=== PATIENT | male | born 1975 | race Caucasian/White ===

== ENCOUNTER 2020-12-15 09:11 | Inpatient (IN) ==
[2020-12-15] MEDS ORDERED: SODIUM CHLORIDE 0.9% 1000ML 1,000 ML IV ONE (11:38)
[2020-12-15] MEDS ORDERED: ACETAMINOPHEN 1,000 MG/100 ML VIAL IV STA (11:38)
[2020-12-15] MEDS ORDERED: dexAMETHasone**PF** 10 MG/ML VIAL IV ONE (11:38)
[2020-12-15] MEDS ORDERED: MoRPHine SULFATE 10 MG/ML CARP/VIAL IV STA (11:39)
[2020-12-15 12:33] LABS: Basophils # (auto) 0.04 K/uL (0-0.2); Basophils % (auto) 0.5 %; Eosinophils # (auto) 0.08 K/uL (0-0.5); Hematocrit (blood only) 47.1 % (42-52); Immature Granulocytes # (auto) 0.08 K/uL (0.00-0.02); Lymphocytes # (auto) 3.39 K/uL (1.2-3.4); Mean Corpuscular Hemoglobin 29.3 pg (25-34); Mean Corpuscular Volume 86.1 fL (80-100); Mean Platelet Volume 10.3 fL (7.4-10.4); Monocytes # (auto) 0.64 K/uL (0.11-0.59); Monocytes % (auto) 7.7 %; Neutrophils # (auto) 4.03 K/uL (1.4-6.5); Neutrophils % (auto) 48.8 %; Platelet Count 278 K/uL (130-400); RDW Coefficient of Variation 12.8 % (11.5-14.5); RDW Standard Deviation 40.7 fL (36.4-46.3); Red Blood Count 5.47 M/uL (4.7-6.1); White Blood Count 8.26 K/uL (4.8-10.8)
[2020-12-15] MEDS ORDERED: ONDANSETRON INJ 2 MG/ML 2 ML VIAL IV PRN (12:40)
[2020-12-15] MEDS ORDERED: PROMETHAZINE HCL 12.5 MG in SODIUM CHLORIDE 0.9% 50 ML IV PRN (12:40)
[2020-12-15] MEDS ORDERED: traMADol HCL 50 MG TABLET PO PRN (12:40)
[2020-12-15] MEDS ORDERED: HYDROmorphone INJ 1 MG/ML SYRINGE IV PRN (12:40)
[2020-12-15] MEDS ORDERED: SOD PHOSPHATE/SOD BIPHOSPHATE ENEMA 132 ML BTL PR PRN (12:40)
[2020-12-15] MEDS ORDERED: KETOROLAC TROMETHAMINE 15 MG/ML VIAL IV PRN (12:40)
[2020-12-15] MEDS ORDERED: MAGNESIUM HYDROXIDE SUSP 30 ML UDC PO PRN (12:40)
[2020-12-15] MEDS ORDERED: ACETAMINOPHEN 500 MG TAB PO PRN (12:40)
[2020-12-15] MEDS ORDERED: LORazepam 0.5 MG/1 ML VIAL IV PRN (12:40)
[2020-12-15] MEDS ORDERED: ONDANSETRON 4 MG OD TAB PO PRN (12:40)
[2020-12-15] MEDS ORDERED: METOCLOPRAMIDE HCL INJ 5 MG/ML 2 ML VIAL IV PRN (12:40)
[2020-12-15] MEDS ORDERED: diphenhydrAMINE Capsule 25 MG CAP PO PRN (12:40)
[2020-12-15] MEDS ORDERED: NALOXONE HCL 0.4 MG/1 ML VIAL/CARP IV PRN (12:40)
[2020-12-15 12:51] LABS: Albumin Level 3.8 gm/dl (3.4-5.0); BUN Creatinine Ratio 17.9 (10-20); Calcium 8.9 mg/dl (8.5-10.1); Creatinine Clr Calc Pharmacy 89.6 ml/min; Est GFR (African American) 75.7 ml/min; Est GFR (Non-African American) 65.3 ml/min; Magnesium 2.6 mg/dl (1.8-2.4); Potassium 3.6 mmol/L (3.5-5.1)
[2020-12-15 12:54] LABS: Bilirubin,Total 0.3 mg/dl (0.2-1); Globulin 3.6 gm/dl (2.5-4.0); Phosphorus 3.4 mg/dl (2.5-4.9); Total Protein 7.4 gm/dl (6.4-8.2)
--- NOTE | 2020-12-15 13:41 | XRay Report ---
XR chest 2V PA/lateral CLINICAL HISTORY: Preoperative evaluation. COMPARISON STUDY: No previous studies for comparison. FINDINGS: Lung volumes are normal. Lungs are clear. There is no pneumothorax or pleural effusion. Car diac size is at the upper limits of normal. Mediastinal contours are normal. There is no evidence for pulmonary edema. IMPRESSION: No acute cardiopulmonary findings. ACT 112: Negative or not required by law. Electronically signed by: Oswaldo Gupta M.D. 12/15/2020 1:40 PM
[2020-12-15 14:31] LABS: INR 1.1 (0.9-1.1); Prothrombin Time 11.2 Seconds (9.0-12.0)
[2020-12-15 14:38] LABS: BUN Creatinine Ratio 15.3 (10-20); Calcium 8.4 mg/dl (8.5-10.1); Creatinine Clr Calc Pharmacy 81.5 ml/min; Est GFR (African American) 67.5 ml/min; Est GFR (Non-African American) 58.2 ml/min; Potassium 3.8 mmol/L (3.5-5.1)
--- NOTE | 2020-12-15 15:33 | Communication Note ---
Date of Service: December 15, 2020 Patient has an increase in CR from 1.31 to 1.44.? med related
--- NOTE | 2020-12-15 15:33 | Anesthesiology Consultation ---
Date of Service December 15, 2020 Assessment & Plan Chart Review Chart Review: Acceptable Risk for Surgery and Patient NOT seen in Pre Admission Testing Consults Requested none ASA ASA3 Proposed Anesthesia Anesthesia Type: General History Surgery Operation Date: 12/16/20 07:45 Proposed Procedures p L4-L5 Posterior Lumbar Decompression Fusion - Ralph Brown DO Height/Weight Height: 5 ft 7 in Weight: 123.2 kg Allergies Allergy/AdvReac Type Severity Reaction Status Date / Time acetaminophen [From Tylenol] AdvReac Intermediate Post nasal Unverified 12/15/20 12:26 drip/ trouble breathing Medications Home Medications Medication Instructions Recorded Confirmed Last Taken celecoxib 200 mg capsule 200 mg PO QAM 12/15/20 12/15/20 Unknown fenofibrate nanocrystallized 145 145 mg PO QAM 12/15/20 12/15/20 12/15/20 mg tablet fexofenadine 180 mg tablet 180 mg PO QAM PRN 12/15/20 12/15/20 Unknown ibuprofen 200 mg tablet 800 mg PO Q6H PRN 12/15/20 12/15/20 12/11/20 800 mg levothyroxine 100 mcg tablet 100 mcg PO QAM 12/15/20 12/15/20 12/15/20 (Synthroid) prednisone 5 mg tablet 5 mg PO DIRECTED 12/15/20 12/15/20 12/14/20 sertraline 100 mg tablet 100 mg PO QAM 12/15/20 12/15/20 12/15/20 tramadol 50 mg tablet 50 mg PO Q6H PRN 12/15/20 12/15/20 12/15/20 03:00 Exercise / Class Metabolic Activity II 4-5 Yardwork/Stairs/Walk up hill Past Anesthesia History No Hx of Anesthesia Complications and No Family Hx of Anesthesia Complications History of PONV No Hx of PONV and No Hx of Motion Sickness Social History Smoking Status: Current every day smoker substance use type: does not use Physical Exam Vital Signs Last Vital Signs Temp 36.6 C 12/15/20 09: Pulse 72 12/15/20 14:50 Resp 20 12/15/20 14:50 BP 150/76 H 12/15/20 14:50 Pulse Ox 98 12/15/20 14:50 Testing Laboratory Results 12/15/20 12:23 12/15/20 14:05 PT 11.2 Seconds (9.0-12.0) 12/15/20 14:05 INR 1.1 (0.9-1.1) 12/15/20 14:05 Chest X-Ray Date: 12/15/20 Findings: + NAD
[2020-12-15] MEDS ORDERED: GADOBUTROL 65ML VIAL IV ONE (16:25)
--- NOTE | 2020-12-15 17:02 | Magnetic Resonance Report ---
LUMBAR SPINE MRI WITH AND WITHOUT CONTRAST HISTORY: Intractable low back pain. Preop. TECHNIQUE: Multiplanar multisequence MRI of the lumbar spine was performed both before and after the intravenous administration of contrast. COMPARISON: None. FINDINGS: For the purpose of the report the L5-S1 disc space will be located on axial image 27 of 30. Localizer images suggest the possibility 3 cm exophytic lesion within the upper pole the left kidney. This is not included on the additional sequences. No fractures of fixation within the lumbar spine. There is mild disc space at L4-5 with associated disc desiccation. Remaining disc spaces are preserve d. The conus terminates at the L1 level. The visualized sacrum is intact. Paravertebral soft tissues are unremarkable. L1-L2: No significant central canal or neural foraminal narrowing. L2-L3: No significant central canal or neural foraminal narrowing. L3-L4: No significant central canal or neural foraminal narrowing. L4-L5: Evidence for prior right hemilaminectomy. There is enhancement at the hemilaminectomy site lik fortunato representing expected postoperative change. There is an 11 x 7 mm right paracentral focal disc pr otrusion which displaces and compresses the transiting right L5 nerve root. L5-S1: No significant central canal or neural foraminal narrowing. IMPRESSION: 1. An 11 x 7 mm right paracentral focal disc protrusion at L4-5 which displaces and compresses the tr ansiting right L5 nerve root. 2. Postoperative changes consistent with prior right L4-5 hemilaminectomy. 3. Possible 3 cm exophytic lesion within the upper pole of the left kidney. This is only partially im aged on this study. Follow-up nonemergent renal ultrasound recommended for confirmation. ACT 112: Positive. There are findings on this exam that require communication between the performing entity and the patient following Patient Test Result Information Act ([place] Act 112) guidelines. Electronically signed by: Jerome Mcfarland M.D. 12/15/2020 5:00 PM
[2020-12-15] MEDS: LACTATED RINGER'S 1,000 ML IV SCH (17:19)
[2020-12-15] MEDS: CYCLOBENZAPRINE HCL 10 MG TAB PO SCH ×2 (17:25→20:48)
--- NOTE | 2020-12-15 18:03 | Emergency Department Note ---
Impression & Plan Lumbar disc herniation with radiculopathy, Intractable low back pain ED Provider Note NAME: STEPHANIE PRESTON AGE: 45 SEX: M ARRIVES VIA: Walk-In INFORMANT: Patient, ED PROVIDER(S): Dell King MD CHIEF COMPLAINT: Back pain PLAN: Disposition: Admit MEDICAL DECISION MAKING: The patient is a pleasant 45-year-old gentleman with a pmhx of chronic back pain, lumbar disc disease who presents to the emergency department with worsening right lumbar pain and numbness and tingling of his right lower extremity which acutely worsened over the past 5 days, which occurs in the setting of his report of ongoing pain for the past year following prior lumbar surgery. He reports he was seen at outside hospital on Sunday and had a CT scan and Dilaudid which improved his pain but he reports the pain returned after 4 hours. He denies any loss of bowel control or urinary retention. Denies any fevers, chills, cough, congestion. He reports he had contacted his current spine surgeon's office (Dr. Brown) and was referred to the emergency department for possible admission. On arrival the patient is uncomfortable, in no acute distress, afebrile with stable vital signs. He has mild tenderness of the right mid lumbar region without midline tenderness or step-offs. He has normal strength in bilateral lower extremities. He has normal reflexes. There is no clonus. WBC, H/H and platelets with this. Chemistry without metabolic acidosis. Crea tinine 1.3. Electrolytes and LFTs on remarkable. COVID-19 PCR was negative. I did review the patient's case with his spinal surgeon, Dr. Brown, who evaluated the patient and will admit the patient for further management. Triage Nursing notes reviewed and agree them. Prior medical records reviewed Vital Signs: reviewed and remarkable for no significant abnormalities Differential diagnosis: Musculoskeletal, disc herniation, fracture, metastatic disease, cord compression, discitis, sciatica, cauda equina, infection, aortic disease, renal colic, gastrointestinal, as well as other pathologies. ER treatment provided: See below. Diagnostics interpreted by me: Cardiac Monitoring: An order for continuous cardiac monitoring was placed and demonstrated NSR, 79 bpm, no ectopy. Laboratory studies: See below Imaging studies: See below Consultation(s): Dr. Brown, orthopedic spine on-call. HPI: The patient is a pleasant 45-year-old gentleman with a pmhx of chronic back pain, lumbar disc disease who presents to the emergency department with worsening right lumbar pain and numbness and tingling of his right lower extremity which acutely worsened over the past 5 days, which occurs in the setting of his report of ongoing pain for the past year following prior lumbar surgery. He reports he was seen at outside hospital on Sunday and had a CT scan and Dilaudid which improved his pain but he reports the pain returned after 4 hours. He denies any loss of bowel control or urinary retention. Denies any fevers, chills, cough, congestion. He reports he had contacted his current spine surgeon's office (Dr. Brown) and was referred to the emergency department for possible admission. ROS: See above HPI for pertinent positives & negatives. A total of 10 systems reviewed and were otherwise negative. PAST MEDICAL HISTORY:See Below PAST SURGICAL HISTORY:See Below FAMILY HISTORY:See Below SOCIAL HISTORY:See Below HOME MEDICATIONS:See Below ALLERGIES:See Below VITALS:See Below PHYSICAL EXAMINATION: GENERAL: Awake, alert, uncomfortable-appearing, in no distress, BMI 43.8. HENT: Normocephalic, atraumatic. Oropharynx with dry mucous membranes and otherwise unremarkable. EYES: Normal conjunctiva. Sclera non-icteric. NECK: Supple. No nuchal rigidity. FROM. No JVD. RESPIRATORY: Clear to auscultation. CARDIAC: Regular rate, normal rhythm. Extremities warm and well perfused. Pulses equal. ABDOMEN: Soft, non-distended. No tenderness to palpation. No rebound or guarding. No masses. RECTAL: Deferred. MUSCULOSKELETAL: Chest examination reveals no tenderness. Mild tenderness of the right mid lumbar region without midline tenderness or step-offs. There is no CVA tenderness to palpation. No joint edema. LOWER EXTREMITIES: Calves are equal size bilaterally and non-tender. No edema. No discoloration. NEURO: Normal sensorium. No sensory or motor deficits noted. 5/5 strength and SILT x 4 extremities. DTRs wnl. No clonus. SKIN: No rash or jaundice noted. Dell King MD Past Med/Surg History Social History Smoking Status: Never smoker Hx Alcohol Use: No Hx Substance Use: No Preferred Language: Occitan Communication Ability: Effective Personal Banker Required: No Beliefs That Will Affect Care: None Current Living Situation: Significant Other Feels Safe at Home: Yes Assistive Devices: Walker Allergies Allergies Allergy/AdvReac Type Severity Reaction Status Date / Time acetaminophen [From Tylenol] AdvReac Intermediate Post nasal Unverified 12/15/20 12:26 drip/ trouble breathing Home Meds Home Medications Medication Instructions Recorded Confirmed celecoxib 200 mg capsule 200 mg PO QAM 12/15/20 12/15/20 fenofibrate nanocrystallized 145 145 mg PO QAM 12/15/20 12/15/20 mg tablet fexofenadine 180 mg tablet 180 mg PO QAM PRN 12/15/20 12/15/20 ibuprofen 200 mg tablet 800 mg PO Q6H PRN 12/15/20 12/15/20 levothyroxine 100 mcg tablet 100 mcg PO QAM 12/15/20 12/15/20 (Synthroid) prednisone 5 mg tablet 5 mg PO DIRECTED 12/15/20 12/15/20 sertraline 100 mg tablet 100 mg PO QAM 12/15/20 12/15/20 tramadol 50 mg tablet 50 mg PO Q6H PRN 12/15/20 12/15/20 Results & Data (ED) Vital Signs Vital Signs - 24 hr 12/15/20 09:21 12/15/20 12:19 Temperature 36.6 C Temperature Source Temporal Artery Scan Pulse Rate 79 Pulse Rate [Left Finger] 87 Respiratory Rate 18 20 Respiratory Effort / Characteristics Non-Labored Respiratory Depth Normal Blood Pressure 135/86 Blood Pressure [Left Arm] 165/94 H Blood Pressure Mean 102 Blood Pressure Mean [Left Arm] 117 Blood Pressure Position [Left Arm] Sitting Pulse Oximetry 96 97 Oxygen Delivery Method Room Air Sepsis Recent Fever Within 48 Hours No Sepsis New/Unexplained Change in Mental Status No Sepsis Action Taken by Nursing No Action Required Laboratory Data Result diagrams: 12/15/20 12:23 12/15/20 14:05 Lab Results 12/15/20 12/15/20 12/15/20 Range/Units 12:23 12:23 12:25 WBC 8.26 (4.8-10.8) K/uL RBC 5.47 (4.7-6.1) M/uL Hgb 16.0 (14.0-18.0) g/dL Hct 47.1 (42-52) % MCV 86.1 (80-100) fL MCH 29.3 (25-34) pg MCHC 34.0 (32-36) g/dL RDW Std Deviation 40.7 (36.4-46.3) fL RDW Coeff of Dary 12.8 (11.5-14.5) % Plt Count 278 (130-400) K/uL MPV 10.3 (7.4-10.4) fL Immature Gran % (Auto) 1.0 % Neut % (Auto) 48.8 % Lymph % (Auto) 41.0 % Hernando % (Auto) 7.7 % Eos % (Auto) 1.0 % Baso % (Auto) 0.5 % Neut # (Auto) 4.03 (1.4-6.5) K/uL Lymph # (Auto) 3.39 (1.2-3.4) K/uL Hernando # (Auto) 0.64 H (0.11-0.59) K/uL Eos # (Auto) 0.08 (0-0.5) K/uL Baso # (Auto) 0.04 (0-0.2) K/uL Immature Gran # (Auto) 0.08 H (0.00-0.02) K/uL Sodium 141 (136-145) mmol/L Potassium 3.6 (3.5-5.1) mmol/L Chloride 107 (98-107) mmol/L Carbon Dioxide 28 (21-32) mmol/L Anion Gap 6.0 (3-11) BUN 23 H (7-18) mg/dl Creatinine 1.31 (0.6-1.4) mg/dl Est Cr Clr Drug Dosing 89.6 ml/min Est GFR ( Amer) 75.7 ml/min Est GFR (Non-Af Amer) 65.3 ml/min BUN/Creatinine Ratio 17.9 (10-20) Glucose 109 H (70-99) mg/dl Calcium 8.9 (8.5-10.1) mg/dl Phosphorus 3.4 (2.5-4.9) mg/dl Magnesium 2.6 H (1.8-2.4) mg/dl Total Bilirubin 0.3 (0.2-1) mg/dl AST 25 (15-37) U/L ALT 35 (12-78) U/L Alkaline Phosphatase 48 (45-117) U/L Total Protein 7.4 (6.4-8.2) gm/dl Albumin 3.8 (3.4-5.0) gm/dl Globulin 3.6 (2.5-4.0) gm/dl Albumin/Globulin Ratio 1.0 (0.9-2) COVID-19 Eval Order Covid19 at [facility] SARS-CoV-2 (PCR) (Negative) 12/15/20 Range/Units 12:25 WBC (4.8-10.8) K/uL RBC (4.7-6.1) M/uL Hgb (14.0-18.0) g/dL Hct (42-52) % MCV (80-100) fL MCH (25-34) pg MCHC (32-36) g/dL RDW Std Deviation (36.4-46.3) fL RDW Coeff of Dary (11.5-14.5) % Plt Count (130-400) K/uL MPV (7.4-10.4) fL Immature Gran % (Auto) % Neut % (Auto) % Lymph % (Auto) % Hernando % (Auto) % Eos % (Auto) % Baso % (Auto) % Neut # (Auto) (1.4-6.5) K/uL Lymph # (Auto) (1.2-3.4) K/uL Hernando # (Auto) (0.11-0.59) K/uL Eos # (Auto) (0-0.5) K/uL Baso # (Auto) (0-0.2) K/uL Immature Gran # (Auto) (0.00-0.02) K/uL Sodium (136-145) mmol/L Potassium (3.5-5.1) mmol/L Chloride (98-107) mmol/L Carbon Dioxide (21-32) mmol/L Anion Gap (3-11) BUN (7-18) mg/dl Creatinine (0.6-1.4) mg/dl Est Cr Clr Drug Dosing ml/min Est GFR ( Amer) ml/min Est GFR (Non-Af Amer) ml/min BUN/Creatinine Ratio (10-20) Glucose (70-99) mg/dl Calcium (8.5-10.1) mg/dl Phosphorus (2.5-4.9) mg/dl Magnesium (1.8-2.4) mg/dl Total Bilirubin (0.2-1) mg/dl AST (15-37) U/L ALT (12-78) U/L Alkaline Phosphatase (45-117) U/L Total Protein (6.4-8.2) gm/dl Albumin (3.4-5.0) gm/dl Globulin (2.5-4.0) gm/dl Albumin/Globulin Ratio (0.9-2) COVID-19 Eval Order SARS-CoV-2 (PCR) NEGATIVE (Negative) Administered Medications Cyclobenzaprine HCl (Cyclobenzaprine Hcl 10 Mg Tab) 10 mg PO Q8 TIARRA Stop: 01/14/21 16:59 Last Admin: 12/15/20 20:48 Dose: Not Given Documented by: [id number] Admin: 12/15/20 17:25 Dose: Not Given Documented by: [id number] Dexamethasone 8 mg/ Syringe 2 mls @ 1 mls/min IV Q8H TIARRA Stop: 12/16/20 09:01 Last Admin: 12/15/20 18:21 Dose: 1 mls/min Documented by: [id number] Lactated Ringer's (Lr) 1,000 mls @ 75 mls/hr IV .[id number] TIARRA Stop: 01/14/21 12:44 Last Admin: 12/15/20 17:19 Dose: Not Given Documented by: [id number] Ketorolac Tromethamine (Ketorolac Tromethamine 15 Mg/Ml Vial) 15 mg IV Q6H PRN PRN Reason: Pain Stop: 12/20/20 12:39 Last Admin: 12/15/20 20:39 Dose: 15 mg Documented by: [id number] Oxycodone HCl (Oxycodone Hcl Ir 5 Mg Tab (Immediate Release)) 5 - 10 mg PO Q4H PRN PRN Reason: mod to severe pain Stop: 12/29/20 12:39 Last Admin: 12/15/20 20:40 Dose: 10 mg Documented by: [id number] Senna/Docusate Sodium (Docusate Sodium/Senna 50/8.6mg Tab) 2 tab PO HS TIARRA Stop: 01/14/21 20:59 Last Admin: 12/15/20 20:47 Dose: 2 tab Documented by: [id number] Discontinued Medications Dexamethasone Sodium Phosphate (DexamethasonePf 10 Mg/Ml Vial) 10 mg IV NOW ONE Stop: 12/15/20 11:39 Last Admin: 12/15/20 12:39 Dose: 10 mg Documented by: [id number] Gadobutrol (Gadobutrol 65ml Vial) 12.2 ml IV ONCE ONE Stop: 12/15/20 16:26 Last Admin: 12/15/20 16:18 Dose: 12.2 ml Documented by: [id number] Acetaminophen (Ofirmev) 1,000 mg in 100 mls @ 400 mls/hr IV NOW STA Stop: 12/15/20 11:52 Last Admin: 12/15/20 12:39 Dose: Not Given Documented by: [id number] Sodium Chloride (Nss 1000ml) 1,000 mls @ 999 mls/hr IV .Q1H1M ONE Stop: 12/15/20 12:38 Last Infusion: 12/15/20 17:19 Dose: 0 mls/hr Documented by: [id number] Admin: 12/15/20 12:22 Dose: 999 mls/hr Documented by: [id number] Morphine Sulfate (Morphine Sulfate 10 Mg/Ml Carp/Vial) 10 mg IV NOW STA Stop: 12/15/20 11:40 Last Admin: 12/15/20 12:39 Dose: 10 mg Documented by: [id number] Discharge Plan Visit Data Chief Complaint: Back Injury/Pain Stated Complaint: SEVERE BACK PAIN ED Provider: Dell King Discharge Problem: Lumbar disc herniation with radiculopathy, Intractable low back pain Patient Disposition: Admitted As Inpatient Discharge Instructions Interventions: ED Discharge Assessment Last Done: 12/15/20 15:22
[2020-12-15] MEDS: dexAMETHasone 8 MG in SYRINGE 0 ML IV SCH (18:21)
[2020-12-15] MEDS: oxyCODONE HCL IR 5 MG TAB (IMMEDIATE RELEASE) PO PRN (20:40)
[2020-12-15] MEDS: DOCUSATE SODIUM/SENNA 50/8.6MG TAB PO SCH (20:47)
[2020-12-16] MEDS: LACTATED RINGER'S 1,000 ML IV SCH ×3 (01:39→19:59)
[2020-12-16] MEDS: dexAMETHasone 8 MG in SYRINGE 0 ML IV SCH ×2 (01:39→13:00)
[2020-12-16] MEDS ORDERED: ceFAZolin 2000MG 2,000 MG/15 ML SYR IV SCH (06:00)
[2020-12-16] MEDS: LEVOTHYROXINE SODIUM 100 MCG TABLET PO SCH (06:26)
[2020-12-16] MEDS: CYCLOBENZAPRINE HCL 10 MG TAB PO SCH ×3 (06:27→21:27)
[2020-12-16] MEDS ORDERED: DEXAMETHASONE SOD INJ 4 MG/ML VIAL ONE (07:00)
[2020-12-16] MEDS ORDERED: ONDANSETRON INJ 2 MG/ML 2 ML VIAL ONE (07:00)
[2020-12-16] MEDS ORDERED: MIDAZOLAM HCL 1 MG/ML 2ML VIAL ONE (07:00)
[2020-12-16] MEDS ORDERED: PROPOFOL IV EMULSION 10 MG/ML 20 ML VIAL IV ONE (07:00)
[2020-12-16] MEDS ORDERED: LIDOCAINE 2% 2 ML VIAL/AMP(20MG/ML) INFIL ONE (07:00)
[2020-12-16] MEDS ORDERED: HYDROmorphone INJ 2 MG/ML SYR/VIAL ONE (07:00)
--- NOTE | 2020-12-16 07:38 | History & Physical Bridge Note ---
Date of Service December 16, 2020 History & Physical Bridge Note I have examined the patient, reviewed the History & Physical and in the interval since the performance of the History & Physical I have noted the following changes of clinical significance: no changes noted Decompression fusion L4-L5
[2020-12-16] MEDS ORDERED: EPINEPHrine INJ 1 MG/ML AMP ONE (07:44)
[2020-12-16] MEDS ORDERED: BUPIVACAINE 0.5 % 5 MG/1 ML MPF 30ML VIAL ONE (07:44)
[2020-12-16] MEDS ORDERED: fentaNYL citrate 100 MCG/2 ML VIAL IV PRN (08:29)
[2020-12-16] MEDS ORDERED: ONDANSETRON INJ 2 MG/ML 2 ML VIAL IV PRN ×2 (08:29→12:37)
[2020-12-16] MEDS ORDERED: ePHEDrine sulfate 50 MG/ML AMP IV PRN (08:29)
[2020-12-16] MEDS ORDERED: PROMETHAZINE HCL 6.25 MG in SODIUM CHLORIDE 0.9% 50 ML IV PRN (08:29)
[2020-12-16] MEDS ORDERED: ATROPINE SULFATE 0.1 MG/ML 10ML SYR IV PRN (08:29)
[2020-12-16] MEDS ORDERED: SUCCINYLCHOLINE 100MG/5ML SYR IV ONE (08:47)
[2020-12-16] MEDS ORDERED: ROCURONIUM BROMIDE 10 MG/ML 5 ML VIAL IV ONE (08:47)
[2020-12-16] MEDS ORDERED: NEOSTIGMINE METHYLSULFATE 1 MG/ML 10ML VIAL ONE (09:22)
[2020-12-16] MEDS ORDERED: GLYCOPYRROLATE 0.2 MG/ML VIAL ONE (09:22)
[2020-12-16] MEDS ORDERED: KETAMINE 50 MG/5 ML SYRINGE ONE (09:41)
[2020-12-16] MEDS ORDERED: FLOSEAL HEMOSTATIC MATRIX 10ML TOP ONE (10:09)
--- NOTE | 2020-12-16 10:14 | Operative Report ---
Post Operative Report Pre & Post Diagnosis Operation Date: 12/16/20 07:45 Pre-Op Diagnosis: Recurrent lumbar disc herniation with radiculopathy and weakness Morbid obesity Post-Op Diagnosis: Same I identified the patient and participated in the time-out.: Yes Procedure Operation Date: 12/16/20 07:45 Actual Procedures #1 revision decompression with medial facetectomy and foraminotomy L4-L5. #2 posterior spinal fusion L4-L5 per #3 placement posterior instrumentation L4-5. #4 interbody fusion L4-5. #5 placement peek cage 13 x 26 mm L4-5. #6 placement locally harvested morselized autograft in the posterior gutters. #7 placement of I factor and vitoss in the interbody space and posterior gutters. Surgeon Ralph Brown, Broke Beater Judith aCzares Estimated Blood Loss 100 Findings See Below The patient is 5 foot 6 inches tall weighing over 123 kg with a BMI in excess of 43. The patient's body habitus did contribute to significant technical difficulty requiring her deepest retractors longus instruments in order to perform his procedure. This at least 50% increase the operative time. Specimens None Indications This is a 45-year-old male well-known to me that presents with marked clinical status over the past several days. Presents with inability ambulate and progressive weakness affecting right lower extremity and subsequently here for emergent decompression fusion to avoid permanent neuro deficit. Description of Procedure Patient was met with identified informed consent obtained. Patient was then taken to the operative suite underwent ablation placed in a prone position the Eran table top Dilip frame. All bony prominences well-padded eyes inspected to ensure no external pressure placed upon the. This point the lumbar spine was prepped and draped sterile fashion. Sharp dissection with the assistance of Bovie cautery performed down to and exposing the remaining lamina and transverse processes of L4 and L5. Revision complete laminectomy of L4 was performed including medial facetectomy and foraminotomy on the right. Identified evidence of massive recurrent disc condition on the right with compression of the traversing L5 nerve root. This is removed in its entirety. Pedicle screws then placed in L4-5 bilaterally with assistance of fluoroscopy the proper sized félix placed. By way of a transforaminal portion right complete discectomy of L4-5 was performed endplates curetted to subcortical bleeding bone and a 13 x 26 mm peek cage filled with I factor was tapped in position. The rods were then compressed locked in final position bilaterally. The transverse processes of L4 and L5 burred to subcortical bleeding bone. I factor combined with Vitoss and locally harvested morselized autograft was placed in the posterior gutters. 15 round ROGER drain inserted. The incision was then closed with 1 Vicryl the fascia 2-0 Vicryl subcutaneously and 4 Monocryl for final skin closure. Steri-Strip Steri-Strips placed. Patient will continue PACU stable condition. Please note spinal cord monitoring was utilized at the procedure no changes noted. Lastly Judith Cazares was present at the entire surgeon while the patient positioning complex portions of the surgery and fascial closure. I attest to the content of the Intraoperative Record and any orders documented therein. Any exceptions are noted below.
--- NOTE | 2020-12-16 10:20 | Fluoroscopy Report ---
FL lumbar spine 2-3V CLINICAL HISTORY: L4-L5 posterior lumbar decompression/fusion COMPARISON STUDY: None. FLUOROSCOPY TIME: 23 seconds. FINDINGS: 2 fluoroscopic spot images of the lower lumbar spine demonstrate posterior decompression an d fusion at L4-5 with pedicle screws and rods. A disc spacer is in place. The hardware is intact. IMPRESSION: Fluoroscopy for for L4-5 posterior decompression and fusion ACT 112: Negative or not required by law. Electronically signed by: Jerome Mcfarland M.D. 12/16/2020 10:18 AM
[2020-12-16] MEDS ORDERED: ALBUT/IPRATROP 3MG/0.5MG NEB 3 ML VIAL NEB STA (11:03)
--- NOTE | 2020-12-16 11:50 | XRay Report ---
XR chest 1V portable HISTORY: 45 years-old Male sob, couigh acute cough with shortness of breath COMPARISON: 12/15/2020 TECHNIQUE: Portable AP view of the chest FINDINGS: Cardiomediastinal and hilar silhouettes are unchanged. No pneumothorax, pleural effusion, airspace co nsolidation or overt pulmonary edema. Bones of the chest appear grossly intact. IMPRESSION: No acute process. ACT 112: Negative or not required by law. The above report was generated using voice recognition software. It may contain grammatical, syntax o r spelling errors. Electronically signed by: Adis Ruiz M.D. 12/16/2020 11:48 AM
[2020-12-16] MEDS ORDERED: MAGNESIUM HYDROXIDE SUSP 30 ML UDC PO PRN (12:37)
[2020-12-16] MEDS ORDERED: DO NOT ADMINISTER FLU VACCINE PRN (12:37)
[2020-12-16] MEDS ORDERED: oxyCODONE HCL IR 5 MG TAB (IMMEDIATE RELEASE) PO PRN (12:37)
[2020-12-16] MEDS ORDERED: NALOXONE HCL 0.4 MG/1 ML VIAL/CARP IV PRN (12:37)
[2020-12-16] MEDS ORDERED: diphenhydrAMINE Capsule 25 MG CAP PO PRN (12:37)
[2020-12-16] MEDS ORDERED: hydrOXYzine HCl 25 MG TAB PO PRN (12:37)
[2020-12-16] MEDS ORDERED: traMADol HCL 50 MG TABLET PO PRN (12:37)
[2020-12-16] MEDS ORDERED: METOCLOPRAMIDE HCL INJ 5 MG/ML 2 ML VIAL IV PRN (12:37)
[2020-12-16] MEDS ORDERED: HYDROmorphone INJ 0.5 MG/0.5 ML SYR IV PRN (12:37)
[2020-12-16] MEDS ORDERED: LORazepam 0.5 MG TAB PO PRN (12:37)
[2020-12-16] MEDS ORDERED: HYDROmorphone INJ 1 MG/ML SYRINGE IV PRN (12:37)
[2020-12-16] MEDS ORDERED: PROMETHAZINE HCL 12.5 MG in SODIUM CHLORIDE 0.9% 50 ML IV PRN (12:37)
[2020-12-16] MEDS ORDERED: ALUMINUM/MAGNESIUM SUSP 30 ML UDC PO PRN (12:37)
[2020-12-16] MEDS ORDERED: LORazepam 0.5 MG/1 ML VIAL IV PRN (12:37)
[2020-12-16] MEDS ORDERED: DO NOT ADMINISTER PNEUMOCOCCAL VACCINE PRN (12:37)
[2020-12-16] MEDS ORDERED: FAMOTIDINE 20 MG TAB PO PRN (12:37)
[2020-12-16] MEDS ORDERED: SOD PHOSPHATE/SOD BIPHOSPHATE ENEMA 132 ML BTL PR PRN (12:37)
[2020-12-16] MEDS ORDERED: bisacodyL 10 MG SUPP PR PRN (12:37)
[2020-12-16] MEDS ORDERED: ONDANSETRON 4 MG OD TAB PO PRN (12:37)
[2020-12-16] MEDS: FENOFIBRATE NANOCRYSTALLIZED 145 MG TABLET PO SCH (13:00)
[2020-12-16] MEDS: SERTRALINE HCL 100 MG TABLET PO SCH (13:01)
--- NOTE | 2020-12-16 13:02 | Anesthesiology Progress Note ---
Date of Service December 16, 2020 Anesthesia Post Procedure Vital Signs Vital Signs: Temp Pulse Pulse Resp BP Pulse Ox 12/16/20 12:39 36.9 C 96 H 16 123/76 93 12/16/20 12:20 88 18 119/71 97 12/16/20 12:05 93 H 17 127/72 96 12/16/20 11:50 36.4 C L 91 H 18 122/77 98 12/16/20 11:40 90 18 122/77 98 12/16/20 11:30 89 20 121/78 98 12/16/20 11:20 91 H 20 115/86 98 12/16/20 11:17 88 18 100 12/16/20 11:10 86 16 121/89 93 12/16/20 11:00 90 17 106/72 100 12/16/20 10:50 82 17 126/76 98 12/16/20 10:41 36.1 C L 88 10 L 144/89 H 98 12/16/20 08:00 36.6 C 80 18 136/85 97 12/16/20 06:16 36.6 C 67 18 144/83 H 98 12/15/20 23:20 36.7 C 83 17 112/57 L 93 12/15/20 16:50 36.8 C 103 H 20 136/85 96 12/15/20 14:50 72 20 150/76 H 98 12/15/20 14:00 80 20 160/85 H 98 Pain Intensity Back: Pain Intensity: 6 Transfer of Care Handoff Completed per policy Notes Mental Status: alert / awake / arousable Patient Amnestic to Procedure: Yes Nausea / Vomiting: adequately controlled Pain: adequately controlled Airway Patency, RR, SpO2: stable & adequate BP & HR: stable & adequate Hydration State: stable & adequate Anesthetic Complications: no major complications apparent Notes: patient had some laryngospasm on emergence, necessitating placement of LMA to break with positive pressure. Oxygen saturations and tidal volumes rapidly improved. In PACU, he had course breath sounds and some chest discomfort. This was treated with supplemental oxygen and duoneb treatment which improved his symptoms. CXR unremarkable. He was weaned to nasal cannula and discharged to the floor on continuous pulse oxymetry.
[2020-12-16] MEDS: KETOROLAC 30 MG/ML VIAL IV SCH ×2 (13:12→18:39)
[2020-12-16] MEDS ORDERED: ALBUT/IPRATROP 3MG/0.5MG NEB 3 ML VIAL NEB PRN (14:20)
--- NOTE | 2020-12-16 14:24 | Hospitalist Consultation ---
Date of Consultation December 16, 2020 Assessment & Plan (1) Lumbar disc herniation with radiculopathy: - S/P Lumbar decompression/fusion on 16 December - Surgical management per primary - Pt was prescribed Prednisone taper prior to surgery for back pain - can be D/Cd on discharge - Pt did have laryngospasm which responded to supplemental O2 and Duoneb; No stridor or respiratory compromise currently. Still on supplemental O2 -- Duonebs PRN and monitor respiratory status -- Suspect patient may have underlying SHIRA and given body habitus at risk for hypoventilation syndrome - discussed deep breathing and encourage incentive spirometry (2) Elevated serum creatinine: - Limited labs for comparison - patient states he PCP mentioned his renal function has been elevated and recommended changing Celebrex from BID to daily - Monitor with AM labs but suspect he may be baseline (3) Hypothyroidism: - Continue Levothyroxine 100 mcg daily (4) Depression: - Continue Sertraline 100 mg daily Stable with chronic conditions currently. Hospitalists will continue to follow. Supervising Physician Co-Signing Physician Notes Attending note: patient seen and examined with Zeinab Salas PA-C. I agree with her exam, assessment and plan. - s/p lumbar surgery, management per Dr. Brown - elevated Cr: check BMP in the morning, making urine, electrolytes stable - hypothyroidism History of Present Illness Reason for Consultation: Medical Management Attending Physician: Ralhp Brown DO History of Present Illness Mr. Roberts is a 45 y/o male with PMHx of Hypothyroidism and Depression/Anxiety who is S/P Lumbar Decompression/Fusion on 16 December. Patient is doing well post- operatively. He did have some laryngospasm necessitating placement of LMA but responded to supplemental O2 and Duoneb treatment. Currently on 3.5L with appropriate saturations. Denies any know respiratory condition. 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 He does report his PCP has mentioned his renal function has been elevated on labs at their facility. He was on BID Celebrex and was advised to reduce it down to once a day as outpatient. Currently pain is management at this time and states it just feels like pressure. Pt has no known cardiac history or DVT/PE. Allergies Allergy/AdvReac Type Severity Reaction Status Date / Time acetaminophen [From Tylenol] AdvReac Intermediate Post nasal Unverified 12/15/20 12:26 drip/ trouble breathing Home Medications Medication Instructions Recorded Confirmed Type celecoxib 200 mg capsule 200 mg PO QAM 12/15/20 12/15/20 History fenofibrate nanocrystallized 145 145 mg PO QAM 12/15/20 12/15/20 History mg tablet fexofenadine 180 mg tablet 180 mg PO QAM PRN 12/15/20 12/15/20 History ibuprofen 200 mg tablet 800 mg PO Q6H PRN 12/15/20 12/15/20 History levothyroxine 100 mcg tablet 100 mcg PO QAM 12/15/20 12/15/20 History (Synthroid) prednisone 5 mg tablet 5 mg PO DIRECTED 12/15/20 12/15/20 History sertraline 100 mg tablet 100 mg PO QAM 12/15/20 12/15/20 History tramadol 50 mg tablet 50 mg PO Q6H PRN 12/15/20 12/15/20 History oxycodone 5 mg tablet 5 mg PO Q6H PRN #30 tab 12/17/20 Rx tramadol 50 mg tablet 50 mg PO Q6H PRN #30 tab 12/17/20 Rx amoxicillin 875 mg-potassium 1 tab PO BIDM #18 tab 12/18/20 Rx clavulanate 125 mg tablet (Augmentin) Patient History Medical History (Updated 12/17/20 @ 13:51 by Sarah Guzman PA-C) Depression Hypothyroidism Social History Smoking Status: Never smoker Hx Alcohol Use: No Hx Substance Use: No Preferred Language: Belarusian Communication Ability: Effective Industrial Hygienist Required: No Beliefs That Will Affect Care: None Current Living Situation: Significant Other Feels Safe at Home: No Assistive Devices: Walker Review of Systems Review of Systems: REVIEW OF SYSTEMS General/Constitutional: Denies fever/chills ENT: Denies visual changes, nasal drainage, hearing loss, sore throat, trouble swallowing Cardiovascular: Denies chest pain, palpitations, edema Respiratory: + cough; Denies sputum, SOB, wheezing, orthopnea GI: Denies nausea, vomiting, abdominal pain, constipation, diarrhea, melena/hematochezia : Denies dysuria, frequency, hematuria Musculoskeletal: + back pain/pressure Neurologic: Denies dizziness/lightheadedness, numbness/tingling Hematologic/Lymphatic: Denies bleeding/clotting abnormalities Skin: Denies rash, itch, new skin changes Results & Data Results & Data ([facility]) Vital Signs (Past 12 Hours) Vital Signs Temp Pulse Pulse Resp BP Pulse Ox 12/16/20 13:40 36.7 C 107 H 17 100/60 95 12/16/20 13:15 36.4 C L 88 16 117/76 95 12/16/20 12:39 36.9 C 96 H 16 123/76 93 12/16/20 12:20 88 18 119/71 97 12/16/20 12:05 93 H 17 127/72 96 12/16/20 11:50 36.4 C L 91 H 18 122/77 98 12/16/20 11:40 90 18 122/77 98 12/16/20 11:30 89 20 121/78 98 12/16/20 11:20 91 H 20 115/86 98 12/16/20 11:17 88 18 100 12/16/20 11:10 86 16 121/89 93 12/16/20 11:00 90 17 106/72 100 12/16/20 10:50 82 17 126/76 98 12/16/20 10:41 36.1 C L 88 10 L 144/89 H 98 12/16/20 08:00 36.6 C 80 18 136/85 97 12/16/20 06:16 36.6 C 67 18 144/83 H 98 PG Care Time/CCT Total # of Minutes Spent Total Time Spent with Patient: Total time spent is greater than 50% in coordination of care (as documented) at patient's floor/unit and/or counseling patient: Coding Level of Care Code 66923 Inpt Consult Level 2 Diagnoses Depression F32.9 Hypothyroidism E03.9 Lumbar disc herniation with radiculopathy M51.16 Elevated serum creatinine R79.89
[2020-12-16] MEDS: ceFAZolin 2000MG 2,000 MG/15 ML SYR IV SCH (17:28)
[2020-12-16] MEDS: oxyCODONE HCL IR 5 MG TAB (IMMEDIATE RELEASE) PO PRN (17:38)
[2020-12-16] MEDS: DOCUSATE SODIUM/SENNA 50/8.6MG TAB PO SCH (20:04)
[2020-12-16] MEDS ORDERED: DOCUSATE SODIUM/SENNA 50/8.6MG TAB PO SCH (21:00)
[2020-12-17] MEDS: KETOROLAC 30 MG/ML VIAL IV SCH ×2 (00:14→06:05)
[2020-12-17] MEDS: ceFAZolin 2000MG 2,000 MG/15 ML SYR IV SCH (00:15)
[2020-12-17] MEDS: LACTATED RINGER'S 1,000 ML IV SCH (04:56)
[2020-12-17] MEDS: CYCLOBENZAPRINE HCL 10 MG TAB PO SCH ×4 (05:26→23:59)
[2020-12-17] MEDS: POLYETHYLENE (MIRALAX) 17 GM PACK PO SCH ×4 (06:04→21:05)
[2020-12-17] MEDS: LEVOTHYROXINE SODIUM 100 MCG TABLET PO SCH (06:04)
[2020-12-17 06:29] LABS: Basophils # (auto) 0.01 K/uL (0-0.2); Basophils % (auto) 0.1 %; Eosinophils # (auto) 0.03 K/uL (0-0.5); Eosinophils % (auto) 0.2 %; Hematocrit (blood only) 39.7 % (42-52); Hemoglobin 13.4 g/dL (14.0-18.0); Immature Granulocytes # (auto) 0.05 K/uL (0.00-0.02); Immature Granulocytes % (auto) 0.4 %; Lymphocytes # (auto) 3.14 K/uL (1.2-3.4); Lymphocytes % (auto) 22.1 %; Mean Corpuscular Hemoglobin 28.4 pg (25-34); Mean Corpuscular Hgb Conc 33.8 g/dL (32-36); Mean Corpuscular Volume 84.1 fL (80-100); Mean Platelet Volume 9.9 fL (7.4-10.4); Monocytes # (auto) 0.93 K/uL (0.11-0.59); Monocytes % (auto) 6.6 %; Neutrophils # (auto) 10.02 K/uL (1.4-6.5); Neutrophils % (auto) 70.6 %; Platelet Count 276 K/uL (130-400); RDW Coefficient of Variation 12.8 % (11.5-14.5); RDW Standard Deviation 38.7 fL (36.4-46.3); Red Blood Count 4.72 M/uL (4.7-6.1); White Blood Count 14.18 K/uL (4.8-10.8)
[2020-12-17 07:04] LABS: BUN Creatinine Ratio 20.5 (10-20); Calcium 8.6 mg/dl (8.5-10.1); Creatinine Clr Calc Pharmacy 88.9 ml/min; Est GFR (African American) 76.4 ml/min; Est GFR (Non-African American) 65.9 ml/min; Potassium 3.9 mmol/L (3.5-5.1)
[2020-12-17] MEDS: FENOFIBRATE NANOCRYSTALLIZED 145 MG TABLET PO SCH (08:33)
[2020-12-17] MEDS: SERTRALINE HCL 100 MG TABLET PO SCH (08:33)
[2020-12-17] MEDS: oxyCODONE HCL IR 5 MG TAB (IMMEDIATE RELEASE) PO PRN ×2 (10:22→20:14)
[2020-12-17] MEDS ORDERED: OPTIRAY 320 125ml IV ONE (11:37)
--- NOTE | 2020-12-17 12:18 | CT Scan Report ---
CT angio chest PE protocol CT DOSE: 1824.70 mGy.cm HISTORY: 45 years-old Male with r/o pe. Acute shortness of breath TECHNIQUE: Multiple CTA images of the chest were obtained after the intravenous administration of 120 ml Optiray. Coronal and sagittal MIPS were obtained from the axial data set and were submitted for review. All measurements were obtained according to NASCET criteria. A dose lowering technique was u tilized adhering to the principles of ALARA. COMPARISON: Chest radiograph 12/16/2020 FINDINGS: CTA: There is adequate opacification of the pulmonary arteries to the level of the subsegmental branches w ithout convincing evidence of acute pulmonary embolism. Normal thoracic aorta.Heart size is normal. CT CHEST: No dominant thyroid nodule is seen. No pathologically adenopathy by CT size criteria. No pneumothora x or pleural effusion. Ill-defined patchy multilobar bilateral groundglass densities are noted predom inantly within a central distribution. No lobar airspace consolidation. The central airways are paten t. Hepatosplenomegaly with hepatic steatosis. Unremarkable soft tissues. There is no acute fracture. IMPRESSION: 1. No pulmonary emboli. 2. Bilateral multilobar patchy groundglass opacities are suggestive of a nonspecific infectious or in flammatory pneumonitis. 3. No pleural effusion. 4. Hepatosplenomegaly with hepatic steatosis. ACT 112: Negative or not required by law. The above report was generated using voice recognition software. It may contain grammatical, syntax o r spelling errors. Electronically signed by: Adis Ruiz M.D. 12/17/2020 12:17 PM
[2020-12-17] MEDS ORDERED: bisacodyL 10 MG SUPP PR PRN (12:40)
--- NOTE | 2020-12-17 13:38 | Orthopedic Progress Note ---
Date of Service December 17, 2020 Assessment & Plan (1) Lumbar disc herniation with radiculopathy: Plan: Patient will continue physical therapy monitor his ROGER output hopefully discharge home this weekend. Admission and Anticipated Discharge Date Admission Date: December 16, 2020 Subjective Back pain controlled leg pain markedly improved Physical Exam Physical Exam: On exam he is in the chair at the bedside. Marked improvement of his right leg strength. Results & Data ([facility]) Vital Signs (Past 12 Hours) Vital Signs Temp Pulse Resp BP Pulse Ox 12/17/20 12:10 36.9 C 91 H 18 123/74 94 12/17/20 12:08 36.9 C 91 H 18 123/74 94 12/17/20 07:36 36.7 C 81 17 101/58 L 97
--- NOTE | 2020-12-17 13:54 | Hospitalist Progress Note ---
Date of Service December 17, 2020 Assessment & Plan (1) Opacity noted on imaging study: Plan: * CT showing patchy groundglass opacities suggestive of PNA. By history, looking back he reports that he was starting to feel fatigued and as if "his asthma was flaring" prior to having his procedure. This may have contributed to his hypoxemia and laryngospasm that occurred yesterday after extubation (requiring emergent LMA). He does have mild leukocytosis today (which may be infectious or reactive from surgery) but more importantly, is having a productive cough with blood-tinged mucus and some faint adventitious breath sound that clears with coughing. His CTA was negative for PE. I think it makes sense to complete a full course of antibiotic therapy for community- acquired pneumonia. In addition, it is quite possible that he may have aspirated yesterday thus will use Augmentin which will provide adequate coverage for community-acquired pneumonia along with coverage for aspiration. * Would advise 7 days of therapy * In addition, I have added mucolytic agents * Continue neb treatments as needed * Patient is not hypoxic and is hemodynamically stable. No need to keep him in the hospital for treatment. Does not meet criteria for hospital-acquired infection as his admission was less than 48 hours ago * At any rate, it is quite possible that he may have had an underlying infection leading up to this procedure and/or he aspirated during the procedure * You do not need to keep him in the hospital for any extended time given the underlying pneumonia as he is not hypoxic and is hemodynamically stable. Okay to proceed with discharge once cleared by the primary team. * I do agree that patient is at risk for obesity hypoventilation syndrome and perhaps has undiagnosed SHIRA. Should have a sleep study as an outpatient -- will continue to follow (2) Lumbar disc herniation with radiculopathy: Plan: - S/P Lumbar decompression/fusion-POD #1 -Pain adequately controlled. Tolerating pain medication without ill effects. -Management per primary team (3) Elevated serum creatinine: Plan: - Limited labs for comparison - patient states he PCP mentioned his renal function has been elevated and recommended changing Celebrex from BID to daily -Creatinine 1.44-->1.3 -I would advise patient hold NSAIDs for now (looks to be taking Celebrex twice daily in addition to ibuprofen as needed) (4) Hypothyroidism: Plan: - Continue Levothyroxine 100 mcg daily (5) Depression: Plan: - Continue Sertraline 100 mg daily Plan: Stable with chronic conditions currently. Hospitalists will continue to follow. Admission and Anticipated Discharge Date Admission Date: December 16, 2020 Subjective Seen on daily rounds today. He is a 45-year-old white male who is POD #1 s/p lumbar decompression with fusion. Apparently following surgical intervention yesterday, he was extubated and while in recovery, became hypoxic with audible stridor requiring insertion of LMA. His O2 saturations and total volume rapidly improved he was treated with breathing treatments and supplemental oxygen and was subsequently transitioned to the floor. He remained on 5 to 6 L and has been slowly down titrated overnight. This morning he is 94% on room air. Patient does report an underlying history of asthma. Claims it is typically well controlled but 4 days leading up to his procedure, he felt as if "his asthma was flaring". He denied any fevers or chills. This morning, he can hear "a rattle in his chest" and is expectorating green mucus that is blood-tinged. Nurse did mild hemoptysis (size of a quarter). Patient denies F/C. He has remained afebrile and HD stable. He denies calf pain or swelling. Denies pleurisy or SOB. Does report a h/o covid in May- mild (loss of taste and smells, cough and fatigue). Has completely recovered from this. Denies a personal/family history of DVT/PE/blood dyscrasia. Given his recent surgical intervention, his postoperative episode of bronchospasm/laryngospasm with hypoxemia requiring LMA insertion, and former history of CovidI was slightly suspicious for underlying PE. A CTA was obtained showing no evidence of PE but did show multilobar opacities. Currently his back pain is controlled. Tolerating pain medication without ill effects. Review of Systems Review of Systems: All systems reviewed and are unremarkable except as noted in HPI and below + Mild hemoptysis, productive cough. Otherwise, denies fevers, chills, headache, nasal congestion, sore throat, cough, chest pain, shortness of breath, pleurisy, palpitations, orthopnea, PND, abdominal pain, nausea, vomiting, diarrhea, constipation, dysuria, hematuria, frequency, back pain, joint pain or swelling, easy bruising or blooding, skin lesions or rashes. Physical Exam Physical Exam: General: Resting comfortably in his hospital bed. Does not appear ill or toxic. NAD. HEENT: Head is AT/NC buccal mucosa is moist and pink Neck: No JVD. Negative hepatojugular reflex Cardiac: Distant heart sounds Lungs: Speaking full sentences on ambient air. Coarse scattered rhonchi that mobilizes with coughing. No wheezes or rails. Negative egophony throughout Abdomen: Normoactive X4. Soft and nontender in all quadrants. Extremities: Surgical dressing to lower back dry and intact. Indwelling ROGER drain. No peripheral clubbing cyanosis or edema Neuro: A&O X4 cranial nerves II through XII are grossly intact no focal neuro deficits Skin: No obvious skin lesions or rashes Psych: Appropriate affect pleasant and cooperative Results & Data Results & Data ([facility]) Vital Signs (Past 12 Hours) Vital Signs Temp Pulse Resp BP Pulse Ox 12/17/20 12:10 36.9 C 91 H 18 123/74 94 12/17/20 12:08 36.9 C 91 H 18 123/74 94 12/17/20 07:36 36.7 C 81 17 101/58 L 97 Laboratory Results 12/17/20 06:12 12/17/20 06:12 Diagnostic Findings CTA of the chest: IMPRESSION: 1. No pulmonary emboli. 2. Bilateral multilobar patchy groundglass opacities are suggestive of a nonspecific infectious or inflammatory pneumonitis. 3. No pleural effusion. 4. Hepatosplenomegaly with hepatic steatosis. PG Care Time/CCT Total # of Minutes Spent Total Time Spent with Patient: Total time spent is greater than 50% in coordination of care (as documented) at patient's floor/unit and/or counseling patient: [place] [address] Inpt Consult Level 5 Patient Type Established Diagnoses Lumbar disc herniation with radiculopathy M51.16 Elevated serum creatinine R79.89 Hypothyroidism E03.9 Depression F32.9 Opacity noted on imaging study R93.89
[2020-12-17] MEDS: KETOROLAC TROMETHAMINE 15 MG/ML VIAL IV PRN (17:33)
[2020-12-17] MEDS: AMOXICILLIN/CLAVULANATE 875 MG TAB PO SCH (17:36)
[2020-12-17] MEDS: DOCUSATE SODIUM/SENNA 50/8.6MG TAB PO SCH (19:03)
[2020-12-17] MEDS: guaiFENesin 600 MG TABCR PO SCH (20:15)
[2020-12-18] MEDS: KETOROLAC TROMETHAMINE 15 MG/ML VIAL IV PRN (02:57)
[2020-12-18] MEDS: LEVOTHYROXINE SODIUM 100 MCG TABLET PO SCH (05:54)
[2020-12-18] MEDS: SERTRALINE HCL 100 MG TABLET PO SCH (08:39)
[2020-12-18] MEDS: guaiFENesin 600 MG TABCR PO SCH ×2 (08:39→20:37)
[2020-12-18] MEDS: dexAMETHasone 8 MG in SYRINGE 0 ML IV SCH (08:39)
[2020-12-18] MEDS: AMOXICILLIN/CLAVULANATE 875 MG TAB PO SCH ×2 (08:39→16:59)
[2020-12-18] MEDS: FENOFIBRATE NANOCRYSTALLIZED 145 MG TABLET PO SCH (08:40)
--- NOTE | 2020-12-18 10:02 | Orthopedic Progress Note ---
Date of Service December 18, 2020 Assessment & Plan (1) Lumbar disc herniation with radiculopathy: Plan: At this time we will continue physical therapy monitor his ROGER output. Anticipate discharge home tomorrow. Admission and Anticipated Discharge Date Admission Date: December 16, 2020 Subjective Back pain controlled leg symptoms markedly improved Physical Exam Physical Exam: On exam he is in the chair at bedside. Skin strength testing. Appears comfortable. Results & Data ([facility]) Vital Signs (Past 12 Hours) Vital Signs Temp Pulse Pulse Resp BP Pulse Ox 12/18/20 07:42 37 C 85 20 131/79 96 12/17/20 23:17 36.7 C 88 18 119/66 95
--- NOTE | 2020-12-18 12:36 | Hospitalist Progress Note ---
Date of Service December 18, 2020 Assessment & Plan (1) Opacity noted on imaging study: Plan: * CT showing patchy groundglass opacities suggestive of PNA. By history, looking back he reports that he was starting to feel fatigued and as if "his asthma was flaring" prior to having his procedure. This may have contributed to his hypoxemia and laryngospasm that occurred after extubation (requiring emergent LMA). He does have mild leukocytosis (which may be infectious or reactive from surgery) but more importantly, was having a productive cough with blood-tinged mucus and some faint adventitious breath sound that cleared with coughing. His CTA was negative for PE. I think it makes sense to complete a full course of antibiotic therapy for community-acquired pneumonia. In addition, it is quite possible that he may have aspirated during intubation-- thus will use Augmentin which will provide adequate coverage for community-acquired pneumonia along with coverage for aspiration. clinically responding- no need to add atypical coverage at this time * Would advise 7 days of therapy (rx sent to pharmacy) * In addition, I have added mucolytic agents-- can continue this at home * Continue neb treatments/inhaler as needed * Patient is not hypoxic and is hemodynamically stable. No need to keep him in the hospital for treatment. Does not meet criteria for hospital-acquired infection as his admission was <48 hours prior to symptoms * At any rate, it is quite possible that he may have had an underlying infection leading up to this procedure and/or he aspirated during the procedure * Okay to proceed with discharge once cleared by the primary team from surgical standpoint * I do agree that patient is at risk for obesity hypoventilation syndrome and perhaps has undiagnosed SHIRA. Should have a sleep study as an outpatient * will sign off at this time. Do not hesitate to reconsult as a problem arises. thank you for allowing me to participate in the care of this patient -- will continue to follow (2) Lumbar disc herniation with radiculopathy: Plan: - S/P Lumbar decompression/fusion-POD #2 -Pain adequately controlled. Tolerating pain medication without ill effects. -Management per primary team (3) Elevated serum creatinine: Plan: - Limited labs for comparison - patient states he PCP mentioned his renal function has been elevated and recommended changing Celebrex from BID to daily -Creatinine 1.44-->1.3--> 1.18 today -I would advise patient hold NSAIDs for now (looks to be taking Celebrex twice daily in addition to ibuprofen as needed). Can FU with PCP (4) Hypothyroidism: Plan: - Continue Levothyroxine 100 mcg daily (5) Depression: Plan: - Continue Sertraline 100 mg daily Plan: Stable with chronic conditions currently. Medicine will sign off. Do not hesi tation to reconsult should a problem arise. Admission and Anticipated Discharge Date Admission Date: December 16, 2020 Subjective Patient seen on daily rounds today. Still with subtle cough but improving with the addition of mucinex and abx therapy. No need for supplemental O2. hemoptysis clearing. Denies F/C, CP, SOB, abd pain, N/V, GI/ symptoms Review of Systems Review of Systems: All systems reviewed and are unremarkable except as noted in HPI and below Denies fevers, chills, headache, nasal congestion, sore throat, cough, chest pain, shortness of breath, palpitations, orthopnea, PND, abdominal pain, nausea, vomiting, diarrhea, constipation, dysuria, hematuria, frequency, back pain, joint pain or swelling, easy bruising or blooding, skin lesions or rashes. Physical Exam Physical Exam: General: Resting comfortably in his bedside chair. NAD. HEENT: Head is AT/NC buccal mucosa is moist and pink Neck: No JVD. Negative hepatojugular reflex Cardiac: RRR but distant Lungs: Speaking full sentences on ambient air. No accessory muscle use. No W/R/R Abdomen: Normoactive X4. Soft and nontender in all quadrants. Musculoskeletal/extremities: Surgical dressing to lower back dry and intact. Indwelling ROGER drain. No peripheral clubbing cyanosis or edema Neuro: A&O X4 cranial nerves II through XII are grossly intact no focal neuro deficits Skin: No obvious skin lesions or rashes Psych: Appropriate affect pleasant and cooperative Results & Data Results & Data ([facility]) Vital Signs (Past 12 Hours) Vital Signs Temp Pulse Resp BP Pulse Ox 12/18/20 07:42 37 C 85 20 131/79 96 Laboratory Results 12/17/20 06:12 12/17/20 06:12 PG Care Time/CCT Total # of Minutes Spent Total Time Spent with Patient: Total time spent is greater than 50% in coordination of care (as documented) at patient's floor/unit and/or counseling patient: C[place] [address] Inpt Consult Level 4 Patient Type Established History Detailed Exam Detailed Diagnoses Opacity noted on imaging study R93.89 Lumbar disc herniation with radiculopathy M51.16 Elevated serum creatinine R79.89 Hypothyroidism E03.9 Depression F32.9
[2020-12-18] MEDS: CYCLOBENZAPRINE HCL 10 MG TAB PO SCH ×2 (13:37→20:35)
[2020-12-18] MEDS: oxyCODONE HCL IR 5 MG TAB (IMMEDIATE RELEASE) PO PRN (18:42)
[2020-12-18] MEDS: DOCUSATE SODIUM/SENNA 50/8.6MG TAB PO SCH (20:35)
[2020-12-19] MEDS: CYCLOBENZAPRINE HCL 10 MG TAB PO SCH (05:28)
[2020-12-19] MEDS: LEVOTHYROXINE SODIUM 100 MCG TABLET PO SCH (06:13)
--- NOTE | 2020-12-19 08:45 | Discharge Summary ---
Date of Service December 19, 2020 Admission HPI Per Admitting Provider This is a 45-year-old man who presents to the emergency room with decline due to right lower extremity pain and weakness. He was initially scheduled for surgery in early December. MRI was updated. Showed large herniated disc at L4-5 on the right. He was taken to the operative suite on December 16. He underwent posterior lumbar decompression instrumented fusion L4-5. Admission Exam (Per Admitting) Constitutional well developed Eyes normal visual hopper by confrontation Neck normal visual inspection Respiratory normal respiratory effort Cardiovascular Extremities: normal capillary refill Gastrointestinal (Abdomen) Inspection/Auscultation: abdomen normal to inspection Musculoskeletal Significant weakness right lower extremity noted. Lumbar incision noted. Skin normal turgor Neurologic normal touch/pain/proprioception and moves all extremities Psychiatric A+Ox3, euthymic affect Discharge Data Consultations 12/15/20 12:45 Consult Anesthesiology Routine Consult Internal Medicine Routine 12/15/20 12:47 ED Decision to Admit Stat Procedures Performed Operation Date: 12/16/20 07:45 Actual Procedures p L4-L5 Posterior Lumbar Decompression Fusion with Spinal Cord Monitoring(Not Applicable) - Loreta Brown DO Hospital Course (1) Lumbar disc herniation with radiculopathy: Patient feels much better. Almost complete resolution of his preoperative right lower extremity radiculopathy. Back pain is modest. He is up and ambulatory with the assistance of a walker. He is being discharged home on postoperative day 3. (2) Opacity noted on imaging study: Possible aspiration pneumonia. On Augmentin upon discharge. Discharge Instructions ACTIVITY RECOMMENDATIONS: SELF CARE INSTRUCTIONS AFTER THORACIC/LUMBAR FUSIONS 1. You may walk to your tolerance. It is good exercise for your legs and back. Expect some back and intermittent leg aches and pains. 2. You may perform "counter-top" level activities (make a sandwich, lacey with a project, etc.). 3. No bending or lifting of more than 10 pounds or back twisting of any nature (roll like a log when turning in bed). 4. You may ride in a car for 20-30 minutes at a time. No driving until after your first visit with your doctor. 5. Frequent changes of position and restricting sitting to 30 minutes at a time will help limit the amount of back spasms and stiffness you may experience. 6. You may discontinue the use of ambulatory aids (cane, crutches, etc.) once your strength and confidence allow. 7. You may catapult and arresting gear officer the shower and let water strike your incision when you arrive home at least once daily. Do not take a tub bath, sit in a hot tub or go into a swimming pool until after your first recheck in the office. SPECIAL CARE INSTRUCTIONS: VERY IMPORTANT TO READ AND REVIEW A. Your surgical incision has been closed with a cosmetic suture under the skin that will dissolve in about 6 weeks. In 14 days, you can use a pair of clean scissors and cut the suture that is left outside of the skin at the ends of your incision. 1. The small skin tapes can be removed 7 days after surgery if they have not fallen off by that point. 2. You may keep the wound open to air as much as possible to promote healing after post-op day number 5 unless told otherwise by your doctor. 3. If you think the wound looks like it is becoming infected (redness or worsening drainage) and/or you are experiencing fever, chill or worsening back pain and muscle spasms, contact the office so that we may evaluate you as soon as possible. B. Complications are uncommon, but please contact us if you have any signs or symptoms of: 1. wound infection (fever higher than 102.5 degrees F, redness, separation of wound, drainage, or increasing pain from the incision) 2. blood clots in legs (pain, swelling, redness and warmth in legs) 3. urinary tract infection (fever higher than 102.5 degrees F, burning upon urination or increased frequency of urination) 4. nerve problems (inability to walk on your toes or heels, numbness, loss of bowel or bladder control) 5. any other symptoms that concern you C. Please call the office at if you have any concerns or questions about your operation or recovery. D. No smoking! Smoking drastically decreases the chance of a solid fusion. E. Do not take any anti-inflammatory medications (Indocin, Advil, Motrin, Aspirin, Naprosyn, etc.) as these may inhibit the chance of a solid fusion. Tylenol is okay to take for pain. MANAGING PAIN AFTER SPINAL SURGERY 1. Narcotic medication is intended for short-term use and will be provided for surgical pain. Surgical pain usually lasts for a period of 4-6 weeks. Narcotic medication includes Percocet, Vicodin, Darvocet, Tylenol #3 or Lortab. 2. Longer-term pain is more appropriately treated with non-narcotic medication such as Tylenol ES. 3. Muscle spasm is not appropriately treated with narcotics. Muscle relaxers such as Soma, Flexeril or Skelaxin can be used along with Tylenol ES. 4. Remember that we all live with some "aches and pains". This is not unusual or uncommon after an injury or as we get older. a. Back pain is expected and may include muscle spasms for 4 to 6 weeks after surgery. The pain should gradually improve. If the pain worsens for no apparent reason, please contact the office. b. Intermittent leg pain may also be experienced and should not be concerned about unless it worsens for no apparent reason. If so, please contact the office. 5. We will provide appropriate medication within the normal guidelines of their prescribed use. We will also be very cautious and aware of potential abuse and extended duration of patients' medication needs. a. Pain medications are for your comfort and to assist with sleep and rest so that the tissue can heal. They are not provided in order to return to normal activity and should not be used through the day. To do so or worsening pain at night can result from ongoing tissue damage and development of tolerance to the prescribed medicine. 6. Please allow 2-3 days to process refills. Prescriptions will not be mailed but must be picked up at the office. FOLLOW UP VISIT: Keep your scheduled follow-up appointment. Any questions, please call the office at . Supervising Physician Co-Signing Physician Notes Dr. loreta Brown
[2020-12-19] MEDS: FENOFIBRATE NANOCRYSTALLIZED 145 MG TABLET PO SCH (09:32)
[2020-12-19] MEDS: dexAMETHasone 8 MG in SYRINGE 0 ML IV SCH (09:32)
[2020-12-19] MEDS: SERTRALINE HCL 100 MG TABLET PO SCH (09:33)
[2020-12-19] MEDS: AMOXICILLIN/CLAVULANATE 875 MG TAB PO SCH (09:33)
[2020-12-19] MEDS: guaiFENesin 600 MG TABCR PO SCH (09:33)
[2020-12-19] MEDS: oxyCODONE HCL IR 5 MG TAB (IMMEDIATE RELEASE) PO PRN (11:40)
== END 2020-12-19 11:55 | disposition home or self-care (01) | DRG 453 ==
LOC: 3N 09:11 → ED 09:11 → 3N 15:22